=== PATIENT | male | born 1975 | race Caucasian/White ===

== ENCOUNTER → 2019-01-31 | Outpatient (CLI) | payer OTHER ==
[~2019-01-31] MED LIST: EFFEXOR XR150 MG PO; IBUPROFEN PM C1 EACH PO; KETOROLAC TROME10 MG PO; NORCO 5-325 TA1 EACH PO; PANTOPRAZOLE SO40 MG PO; TYLENOL WITH C1 EACH PO; VENLAFAXINE H37.5 M2 PO; XARELTO10 MG PO
--- NOTE | 2019-01-31 13:59 | Diagnostic Imaging Report ---
EXAM: CT left knee without contrast INDICATION: Injury. Fall. Fracture of left tibia. Closed fracture. COMPARISON: None. TECHNIQUE: Left knee leg was scanned utilizing a multidetector helical scanner without administration of IV contrast. Coronal and sagittal reformations were obtained. Routine protocol was performed. IV CONTRAST: None ORAL CONTRAST: None COMPLICATIONS: None RADIATION DOSE: Total DLP: 187.93 mGy*cm Estimated effective dose: (DLP x 0.015 x size factor) mSv CTDIvol has been reviewed. It is below the limits set by the Radiation Protocol Committee (RPC). Dose modulation, iterative reconstruction, and/or weight based adjustment of the mA/kV was utilized to reduce the radiation dose to as low as reasonably achievable. FINDINGS: Severely comminuted intra-articular depressed, displaced medial tibial plateau fracture with several adjacent small bone fragments. The largest bone fragment is displaced in a medial direction by approximately 3 mm. The cortex is depressed by a proximally 6 mm at the anterior central tibial plateau. Comminuted displaced proximal left fibular fracture. The largest fracture fragment is displaced/retracted superiorly by approximately 2.3 cm. Several small adjacent bone fragments are seen. Oblique fracture through the fabella. This is best seen on coronal reformatted image 43 and 44. Lipohemarthrosis containing small bone fragment best seen on axial image 45. Extensive soft tissue edema. No radiopaque foreign body. Muscle atrophy involving predominantly the posterior medial proximal lower leg musculature best seen on axial image 105. 4.5 cm fluid collection intimately associated with the posterior lateral lower thigh musculature likely due to a intramuscular hematoma. This is best seen on axial image 40 through 60. Impression: Severely comminuted intra-articular depressed, displaced medial tibial plateau fracture. Comminuted displaced proximal left fibular fracture. Oblique fracture through the fabella. Lipohemarthrosis, soft tissue edema and likely intramuscular hematoma involving the posterior lateral lower thigh musculature. Signed by: Dr. Jet Cooley M.D. on 01/31/2019 1:55 PM
== END ==
LOC: CT 12:29
PROVIDERS: ATTEND Specialist
DX: S82.102A Unspecified fracture of upper end of left tibia, initial encounter for closed fracture (principal)